=== PATIENT | male | born 1935 | race Caucasian/White ===

== ENCOUNTER 2016-10-31 16:13 | Emergency (ER) | payer MEDICARE, BC ==
[~2016-10-31] VITALS: Ht 188 cm; Wt 121.1 kg
[~2016-10-31 16:13] MED LIST: ACET-2161 PO; ACET650T59 PO; AMLO2.5T PO; ATOR80TA76 PO; BUME2TAB18 PO; CARV3.123 PO; CLIN300C86 PO; DOCU-175 PO; FAMO20TA8 PO; FEXO180T66 PO; GLIM1TAB2 PO; HYDR-4009 PO; HYDR28.472 TOP; IPRA3AMP AEROSOL; KETO5DRO70 OP; LISI-625 PO; MAG-37 PO; NITR0.4T39 SL; NYST15CR TOP; POLY17PO6 PO; POTA-81 PO; RIVA20TA PO; SERT25TA5 PO; SPIR25TA PO; TAMS0.4C20 PO
[2016-10-31 16:15] VITALS: Ht 188 cm; Wt 121.1 kg
--- NOTE | 2016-10-31 16:29 | ERPDOC ---
Departure Disposition Decision Date: Oct 31, 2016 Disposition Decision Time: 17:58 Disposition: 04 TO [facility] Impression Impression Impression: Primary Impression: Influenza-like illness Severity: Moderate Condition: Stable Seen By: Mid-level only Referrals: ARCHANA WOOD MD (Family) Patient Instructions: Influenza (ED) Problems/Meds/Labs Reviewed?: Yes Medications reviewed and manag: Yes Additional Instructions: CBC indicates a viral shift (consistent with influenza). Chest x-ray was normal. Patient's blood sugar is elevated most likely due to illness. Please adjust insulin accordingly. Keep well hydrated. Take Tamiflu 75mg, 1 tab twice daily for 5 days. Follow treatment plan. You may give already prescribed Tylenol or hydrocodone with acetaminophen as needed for pain. Follow up care ordered?: Yes Mental Status: Alert, Oriented Scripts Oseltamivir Phosphate (Tamiflu) 75 Mg Capsule 75 MG PO BID for 5 Days, #10 CAP Take one capsules, by mouth, two times a day. Prov: TRENTON STEVENS SALVAGE DETERMINER 10/31/16 HPI - Cough/URI General Chief Complaint: Cough,Fever,Flu,URI Stated Complaint: CONGESTION/SORE THROAT Time Seen by Provider: 16:28 Source: patient HPI - Cough/URI Initial Comments 81 YO M sent to ED from nursing for evaluation of cough, sore throat and sinus congestion for past 2 days. When I asked patient why he was sent to ED he says he has had a sore throat for 2 days. Says he is not coughing "that much" and described cough as non productive. Patient denies chills, SOA, CP, nausea/ vomiting or abdominal pain. MCC denied fever. Pain/Severity Scale: Now: 0/10 Associated Symptoms: cough, nasal congestion, nasal drainage, sore throat, DENIES: chest pain/soreness, dizziness, earache, facial pain, fever/chills, headache, lightheadedness, muscle aches, shortness of breath, sinus infection, wheezing Allergies: Coded Allergies: iodine (Verified Allergy, Severe, SWELLING, 10/31/16) PT. STATES, "AFTER MY LAST HEART CATH IN [place] I HAD SWELLING IN MY FACE". peanut (Verified Allergy, Severe, SHORTNESS OF BREATH, 10/31/16) Penicillins (Verified Allergy, Intermediate, SWOLLEN THROAT, 10/31/16) doxazosin (Verified Allergy, Unknown, SOB,CHEST PRESSURE, 10/31/16) metformin (Verified Allergy, Unknown, ELEVATED CREATININE, 10/31/16) pioglitazone (Verified Allergy, Unknown, FLUID RETENTION,CHF, 10/31/16) Past History Patient Surgical History Tonsillectomy cholecystectomy back surgery colonoscopy parathyroidectomy heart catheterization 2007, 2012, 09/08/15- [facility] CABG (2016 unknown date) TURP bilateral cataract surgery Past Medical History Metabolic: diabetes, hypercholesterolemia, hypertension, hypothyroidism, other ENMT: sleep apnea Cardiac: A-fib, CAD, CHF, angina Respiratory: asthma GI: GERD, crohn's Male: BPH, UTI, renal insufficiency Neurological: TIA, neuropathy Musculoskeletal: back pain, osteoarthritis Hematologic: anemia, blood transfusion Surgical History General: back, colonoscopy, gallbladder, tonsils Cardiac: cardiac bypass, cardiac cath Reproductive/: TURP, other (cysto) Family History Family PMH: FOUND: CAD, CHF, CVA, other Vaccines Hx Influenza Vaccination: Yes (MAY 2015) Hx Pneumococcal Vaccination: Yes (JUL 2015) Hx Tetanus Diptheria: No Hx Tetanus, Diptheria, Pertuss: No Social History Sexuality: female partner, other Review of Systems Constitutional Constitutional: DENIES: chills, dizziness, fever, weakness Eyes General: DENIES: erythema, exudate Lids/Accessories: DENIES: erythema, swelling ENMT Ears: DENIES: pain Hearing: hearing loss Sinuses: congestion, rhinorrhea Mouth/Throat: sore throat Cardiovascular Cardiac: DENIES: chest pain, murmur Rhythm/Rate: DENIES: palpitations Pulmonary Respiratory: cough, DENIES: dyspnea GI Upper Abdomen: DENIES: nausea, pain, vomiting Lower Abdomen: DENIES: blood in stool, diarrhea, pain General: DENIES: dysuria, pain Musculoskeletal General: DENIES: pain, tenderness Integumentary Skin: DENIES: color change, itching, rash Neurological General: DENIES: ataxia, change in strength, numbness, paralysis/paresis, weakness Psychiatric Psychiatric: DENIES: anxiety, depression, nervousness Physical Exam General General Nourishment: well nourished, well developed, adult, obese General Body Habitus: well groomed Vitals and Pain First Documented Vital Signs Date Time Temp Pulse Resp B/P Pulse Ox O2 Delivery O2 Flow Rate FiO2 10/31/16 16:15 98.1 62 18 149/65 93 Room Air Weight: Kilograms: Height (feet): 6 Height (inches): 2.00 Triage Pain Scale: Eyes (brief) Eyes Brief: found: EOMI, PERRL ENMT (brief) ENMT Brief: FOUND: TM clear, TM good light reflex, pharnyx erythema, NOT FOUND : nasal exudate, nasal swelling ENMT Pharynx: FOUND: posterior drainage, NOT FOUND: cobblestoning, displacement, edema, exudates, uvular deviation Neck (brief) Neck: FOUND: trachea midline, NOT FOUND: adenopathy, tenderness, thyromegaly Respiratory (brief) Respiratory: FOUND: clear all [place], equal bilaterally, symmetrical Cardiovascular (brief) Cardiac: FOUND: regular rate, regular rhythm Musculoskeletal (brief) Musculoskeletal Brief: NOT FOUND: deformity, loss of motion Integumentary (brief) Integumentary Brief: FOUND: dry, pink, warm Neurologic (brief) Neurological Brief: FOUND: CN w/o gross def to obs, motor-no gross deficits, sensory-no gross deficits Differential Diagnoses Differential Diagnoses Considering: Acute Bronchitis, Influenza, Pharyngitis, Pneumonia, Sinusitis, Strep, URI, Viral Syndrome Progress Results/Orders Orders Procedure Category Date Status Time Influenza A/B Screen LAB 10/31/16 Complete 16:36 Chest, Pa & Lateral RAD 10/31/16 Resulted 16:36 Strep A Antigen Screen LAB 10/31/16 Complete 16:36 Cbc W/Auto LAB 10/31/16 Complete Diff-Reflex Manual Cmp - Comprehensive LAB 10/31/16 Complete Metabolic Group A Strep Culture [facility] 10/31/16 In Process 17:18 Lab Results Laboratory Tests Test 10/31/16 17:01 10/31/16 17:09 Influenza Type A Antigen Negative Influenza Type B Antigen Negative Group A Streptococcus Screen Negative White Blood Count 4.8T/MM3 Red Blood Count 4.48M/MM3 Hemoglobin 13.1GM/DL Hematocrit 40.2% Mean Corpuscular Volume 89.7UM3 Mean Corpuscular Hemoglobin 29.2UUG Mean Corpuscular Hemoglobin Concent 32.6GM/DL RDW Standard Deviation 44.4FL Platelet Count 137T/MM3 Mean Platelet Volume 10.7UM3 Immature Granulocyte % (Auto) 0.6% Neutrophils (%) (Auto) 49.1% Lymphocytes (%) (Auto) 28.1% Monocytes (%) (Auto) 10.7% Eosinophils (%) (Auto) 10.7% Basophils (%) (Auto) 0.8% Absolute Immature Granulocyte (auto 0.03T/MM3 Absolute Neutrophils (auto) 2.3T/MM3 Absolute Lymphocytes (auto) 1.3T/MM3 Absolute Monocytes (auto) 0.5T/MM3 Absolute Eosinophils (auto) 0.5T/MM3 Absolute Basophils (auto) 0.0T/MM3 Turbidity < 20 Sodium Level 139MEQ/L Potassium Level 4.2MEQ/L Chloride Level 101MEQ/L Carbon Dioxide Level 28MEQ/L Anion Gap 10MEQ/L Blood Urea Nitrogen 22.0MG/DL Creatinine 1.1MG/DL Glomerular Filtration Rate Calc 64 BUN/Creatinine Ratio 20RATIO Glucose Level 307MG/DL Calculated Osmolality 283MOSM/KG Calcium Level 10.0MG/DL Total Bilirubin 0.50MG/DL Icterus Index < 2 Aspartate Amino Transf (AST/SGOT) 16U/L Alanine Aminotransferase (ALT/SGPT) 23U/L Alkaline Phosphatase 100U/L Total Protein 7.0G/DL Albumin 3.6G/DL Globulin 3.4G/DL Albumin/Globulin Ratio 1.1RATIO Chemistry Specimen Hemolysis < 15 Progress Progress CBC has viral shift CMP noncontributory (glucose most likely elevated due to illness) Influenza and rapid strep negative CXR did show any pneumonia or other acute findings. I discussed labs and CXR with patient and family, and answered questions. Patient and family verbalize understanding of treatment plan and follow up. Nurse called [facility] with report and they would like patient started on Tamiflu. Xray Xray : Xray: CXR PA/Lat (stable chest, no acute findings) Interpretation: Reviewed Written Report TRENTON STEVENS APRN Oct 31, 2016 16:28
[2016-10-31] MEDS ORDERED: MAGN400T6 PO (16:39)
[2016-10-31] MEDS ORDERED: LINA5TAB PO (16:39)
[2016-10-31] MEDS ORDERED: GLIM2TAB3 PO (16:39)
[2016-10-31] MEDS ORDERED: INSU100V8 SQ (16:51)
[2016-10-31] MEDS ORDERED: INSU100C14 SQ (16:51)
[2016-10-31] MEDS ORDERED: CLOT12CR TOP (16:51)
[2016-10-31] MEDS ORDERED: INSU100I14 SQ (16:51)
[2016-10-31] MEDS ORDERED: SODI14.1 TOP (16:51)
[2016-10-31] MEDS ORDERED: GUAI120015 PO (16:55)
[2016-10-31] MEDS ORDERED: BUDE0.5A6 AEROSOL (16:55)
[2016-10-31] MEDS ORDERED: LOPE2CAP PO (16:55)
--- NOTE | 2016-10-31 17:14 | DI ---
INDICATION: ITS.REASON: cough PROCEDURE: CHEST 2-VIEWS UPRIGHT (PA \T\ LAT) Encounter: Initial COMPARISON: January 30, 2016 FINDINGS: Lungs are stable in appearance with areas of linear scarring along the minor fissure. Mild hypoinflation. No consolidative pneumonia, gross pleural effusion or pneumothorax. Heart size and mediastinal contours are stable. Prior CABG. Pulmonary vascularity is unchanged. Impression: Stable appearance of the chest without acute pneumonia. .
[2016-10-31 17:28] LABS: INFLUENZA A AG SCREEN NEGATIVE (NEGATIVE); INFLUENZA B AG SCREEN NEGATIVE (NEGATIVE)
[2016-10-31 17:30] LABS: BASOPHILS % (AUTO) 0.8 % (0-2); EOSINOPHILS # (AUTO) 0.5 T/MM3 (0-0.5); EOSINOPHILS % (AUTO) 10.7 % (0-4); HCT - HEMATOCRIT 40.2 % (41-53); HGB - HEMOGLOBIN 13.1 GM/DL (13.5-17.5); IMMATURE GRANULOCYTE # (AUTO) 0.03 T/MM3 (0.00-0.03); IMMATURE GRANULOCYTE % (AUTO) 0.6 % (0.0-0.5); LYMPHOCYTES # (AUTO) 1.3 T/MM3 (1-4.8); LYMPHOCYTES % (AUTO) 28.1 % (23-45); MEAN CORPUSCULAR HGB 29.2 UUG (26-34); MEAN CORPUSCULAR HGB CONC(MCHC 32.6 GM/DL (31-37); MEAN CORPUSCULAR VOLUME 89.7 UM3 (80-100); MEAN PLATELET VOLUME 10.7 UM3 (9.4-12.4); MONOCYTES # (AUTO) 0.5 T/MM3 (0-0.8); MONOCYTES % (AUTO) 10.7 % (0-9.0); NEUTROPHILS #(AUTO)-ABSOLUTE 2.3 T/MM3 (1.8-7.7); NEUTROPHILS % (AUTO) 49.1 % (33-66); RED BLOOD COUNT 4.48 M/MM3 (4.50-5.90); WBC - WHITE BLOOD COUNT 4.8 T/MM3 (4.5-11.0)
[2016-10-31 17:35] LABS: ALBUMIN 3.6 G/DL (3.5-5.0); ALBUMIN/GLOBULIN RATIO 1.1 RATIO (1.1-2.2); ALKALINE PHOSPHATASE 100 U/L (38-126); ALT (SGPT) 23 U/L (21-72); ANION GAP 10 MEQ/L (5-15); AST (SGOT) 16 U/L (17-59); BUN/CREATININE RATIO 20 RATIO (6-26); CHLORIDE 101 MEQ/L (98-107); CO2 - CARBON DIOXIDE 28 MEQ/L (22-30); CREATININE 1.1 MG/DL (0.8-1.5); GLOMERULAR FILTRATION RATE 64; GLUCOSE 307 MG/DL (75-110); POTASSIUM 4.2 MEQ/L (3.6-5); SODIUM 139 MEQ/L (134-144)
--- NOTE | 2016-10-31 17:58 | NUR ---
REPORT REPORT TO TANIKA RUVALCABA
[2016-10-31] MEDS ORDERED: OSEL75CA PO (18:05)
[2016-10-31 18:14] VITALS: BP 138/62; PULSE 62; RESP 18; TEMP 98.1; O2SAT 93
--- NOTE | 2016-10-31 18:14 | NUR ---
DEPART DEPARTS VIA WHEELCHAIR. SCRIPT
== END 2016-10-31 18:14 | disposition home or self-care (01) ==
LOC: ED 16:13
DX: J11.1 Influenza due to unidentified influenza virus with other respiratory manifestations (principal)
CPT/HCPCS: 36415; 80053; 85025; 87081; 87400; 87430

== ENCOUNTER 2017-07-16 16:58 | Inpatient (IN) ==
[2017-07-16] MEDS ORDERED: ALBUTEROL/IPRATROPIUM 2.5mg-0.5mg/3ml NEB AEROSOL ONE ×2 (17:05→20:11)
--- NOTE | 2017-07-16 17:15 | Emergency Department Report ---
SOB HPI - General Chief Complaint: Shortness of Breath/Dyspnea Stated Complaint: soa Time Seen by Provider: 07/16/17 17:04 Source: patient Mode of arrival: ambulatory Limitations: other (respiratory failure) - History of Present Illness He is [place] in [place]. Today arrives per EMS with CPAP on and remains in respiratory distress. He has history of CHF and asthma. Was diagnosed with pneumonia 3 days ago and placed on Levaquin daily at 250mg. Today he became very SOA and EMS was called. Per nursing staff he has had some delirium and has not kept his O2 on at the [place]. He does wear CPAP at night. Did get an Albuterol treatment en route. Was evaluated by RN, HAND ENDBAND CUTTER, and RT on arrival to ER. Was switched from CPAP to BiPap. He is very anxious and is not answering questions. Once placed on Bipap he is able to relax after a few minutes and does nod his head yes when asked if he is feeling like he is breathing better. MD Complaint: shortness of breath Onset (ago): unknown Severity: moderate Consistency/Duration: constant Relieving factors: nothing Exacerbating factors: nothing Known history of: asthma, congestive heart failure Associated symptoms: fever (low grade temp) Treatment prior to arrival: oxygen, other (albuterol neb, CPAP) - Related Data Home Medications Medication Instructions Recorded Confirmed Tamsulosin HCl [Flomax] 0.4 mg PO HS #0 01/20/13 07/16/17 Docusate Sodium 200 mg PO DAILY #0 08/22/15 07/16/17 Acetaminophen [Acetaminophen Extra 1,000 mg PO BID #0 01/27/16 07/16/17 Strength] Amlodipine Besylate 2.5 mg PO HS #0 01/27/16 07/16/17 Atorvastatin Calcium 80 mg PO HS #0 01/27/16 07/16/17 Famotidine 20 mg PO BID #0 01/27/16 07/16/17 Ipratropium/Albuterol Sulfate 1 vial AEROSOL TID #0 01/27/16 07/16/17 [Iprat-Albut 0.5-3(2.5) mg/3 ml] Nitroglycerin 0.4 mg SL Q5MIN3 PRN #0 01/27/16 07/16/17 Sertraline HCl 25 mg PO DAILY #0 01/27/16 07/16/17 Bumetanide 2 mg PO DAILY #0 03/12/16 07/16/17 Spironolactone [Aldactone] 25 mg PO DAILY #0 03/12/16 07/16/17 Lisinopril 5 mg PO DAILY #0 03/15/16 07/16/17 Clotrimazole [Lotrimin AF] 1 applicatio TOP BID #0 10/31/16 07/16/17 Glimepiride 2 mg PO WB #0 tab 10/31/16 07/16/17 Insulin Glargine,Hum.rec.anlog 20 unit SQ HS #0 vial 10/31/16 07/16/17 [Lantus] LINAGLIPTIN 5mg [Tradjenta] 5 mg PO DAILY #0 10/31/16 07/16/17 Loperamide [Imodium] 1 mg PO Q6H PRN #0 cap 10/31/16 07/16/17 Magnesium Oxide 400 mg PO BID #0 10/31/16 07/16/17 Sodium Chloride Nasal Gel [[place] 1 applicatio EA NOSTRIL QID #0 10/31/16 07/16/17 Nasal Gel] Albuterol/Ipratropium [Duoneb] 3 ml AEROSOL Q2H PRN 07/16/17 07/16/17 Fexofenadine [Josefina] 180 mg PO DAILY 07/16/17 07/16/17 Fluticasone Nasal [place] [Flonase] 1 spray EA NOSTRIL BID 07/16/17 07/16/17 Fluticasone/Salmeterol 500/50 1 puff INH BID 07/16/17 07/16/17 [Advair 500-50Diskus] Guaifenesin/Dextromethorphan 10 ml PO Q4H PRN 07/16/17 07/16/17 [Robitussin Cough-Chest Dm Liq] Hydrocodone/APAP 5/325 [[place] 1 - 2 tab PO Q4H PRN 07/16/17 07/16/17 5/325] Hydrocortisone 1% Cream 1 applicatio TOP BID 07/16/17 07/16/17 [Cortizone-10 Cream] Insulin Aspart [NovoLOG] 5 unit SQ PRN PRN 07/16/17 07/16/17 Insulin Aspart [NovoLOG] 10 unit SQ TIDWM 07/16/17 07/16/17 Levofloxacin [Levaquin] 250 mg PO DAILY 07/16/17 07/16/17 Loperamide HCl [Imodium A-D] 2 mg PO HS 07/16/17 07/16/17 Nystatin 1 applicatio TP BID 07/16/17 07/16/17 Omeprazole Magnesium [Prilosec Otc] 20 mg PO BID 07/16/17 07/16/17 Rivaroxaban [Xarelto] 10 mg PO WS 07/16/17 07/16/17 Vitamins A and D [Vitamin A & D] 1 applicatio TP DAILY 07/16/17 07/16/17 Allergies Allergy/AdvReac Type Severity Reaction Status Date / Time iodine Allergy Severe SWELLING Verified 07/16/17 17:12 peanut Allergy Severe SHORTNESS Verified 07/16/17 17:12 OF BREATH Penicillins Allergy Intermediate SWOLLEN Verified 07/16/17 17:12 THROAT doxazosin Allergy Unknown SOB,CHEST Verified 07/16/17 17:12 PRESSURE metformin Allergy Unknown ELEVATED Verified 07/16/17 17:12 CREATININE pioglitazone Allergy Unknown FLUID Verified 07/16/17 17:12 RETENTION,CHF Review of Systems Limitations: ROS unobtainable due to patient's medical condition (at time of initial exam) Constitutional: Reports: fever Cardiovascular: Reports: chest pain Respiratory: Reports: dyspnea PFSH Patient Stated Medical History Congestive Heart Failure Yes Chronic Obstructive Pulmonary Yes Disease (COPD) Pneumonia Yes Diabetes Mellitus Type 1 Yes Clinic Medical History (Last Reviewed 07/13/17 @ 13:14 by JEFF Newman) Pneumonia (Acute Medical) Onychomycosis of multiple toenails with type 2 diabetes mellitus and peripheral neuropathy (Chronic Medical) Stage 3 chronic kidney disease (Chronic Medical) Dyspnea due to congestive heart failure (Acute Medical) Gout due to renal impairment, right wrist (Acute Medical) Lumbago (Chronic Medical) GERD without esophagitis (Chronic Medical) Chronic combined systolic and diastolic CHF (congestive heart failure) (Chronic Medical) Crohn's disease of colon (Chronic Medical) Thyroid disease (Chronic Medical) Morbid obesity (Chronic Medical) Hyperlipemia (Chronic Medical) Diabetic polyneuropathy (Chronic Medical) Diabetes (Chronic Medical) Coronary artery disease (Chronic Medical) Benign essential hypertension (Chronic Medical) Asthma (Chronic Medical) Adenoma (Chronic Medical) Cataract (Chronic Medical) First degree AV block (Chronic Medical) Hay fever (Chronic Medical) Hearing loss (Chronic Social Hx) History of BPH (Chronic Medical) Hyperparathyroidism (Chronic Medical) Left ventricular hypertrophy (Chronic Medical) Osteopenia (Chronic Medical) History of UTI (Inactive Medical) Ischemic colitis (Inactive Medical) Family History: Family History (Last Reviewed 07/13/17 @ 13:14 by Patricia Sosa ON LICENSE OF [facility]) Brother Bladder cancer Coronary artery disease Liver cancer Maternal Uncle Heart disease Son Melanoma - Social History Smoking status: Never smoker Substance use type: does not use Alcohol intake frequency: does not drink Physical Exam - Limitations Limitations: no limitations - General General appearance: alert, other (He is very anxious and is in respiratory distress, is not answering questions but will shake his head yes and no) - Normal Exams: Neck:: Full range of motion, without adenopathy, JVD, bruits or thyromegaly Cardiovascular:: Regular rate and rhythm, without murmur or gallop, Pulses 2+ all extremities, capillary refill, <2 seconds all extremities Abdomen:: Bowel sounds positive, soft, non-tender, non-distended, no hepatosplenomegaly, masses or bruits noted Lymphatic:: No lymphadenopathy, or lymphedema noted Musculoskeletal:: No tenderness, or deformity noted, good range of motion, all extremities Integumentary:: No rashes, hives, or bruising noted Neurological:: Patient is alert Psychiatric:: Patient exhibits, appropriate attention, emotion and affect - Respiratory Respiratory exam: Present: respiratory distress, crackles (course throughout all lobes) Course Vital Signs Temperature 100.3 F 07/16/17 17:00 Pulse Rate 91 07/16/17 17:00 Respiratory Rate 27 H 07/16/17 17:00 Blood Pressure 153/69 H 07/16/17 17:00 Pulse Oximetry 94 07/16/17 17:00 Temperature 97.1 F 07/16/17 20:20 Pulse Rate 86 07/16/17 20:20 Respiratory Rate 52 H 07/16/17 19:45 Blood Pressure 158/77 H 07/16/17 20:20 Pulse Oximetry 96 07/16/17 20:20 Shortness of Breath/Dyspnea - MDM Narrative Medical decision making narrative: Was able to wean off of the Bipap and was placed on 3L O2 per NC. He is able to speak in full sentences and is answering questions well. WBC is normal, lactate and procalcitonin is normal. B/P and pulse have been stable while in ER. Troponin is negative. Chest xray from 07/13/17 does show left lower lobe pneumonia and xray today does appear consistent with the pneumonia and some cardiac enlargement. BNP is 1010. Did discuss with Dr Swain. He will accept for admission at this time. - Differential Diagnosis Likely: acute exacerbation of chronic obstructive airways disease, congestive heart failure, community acquired pneumonia - Lab Data Attestation: I reviewed the patient's lab results. Result diagrams: 07/16/17 17:15 07/16/17 17:15 Lab Results 07/16/17 07/16/17 07/16/17 Range/Units 17:15 17:15 17:15 WBC 10.3 (4.5-11.0) T/MM3 RBC 4.39 L (4.50-5.90) M/MM3 Hgb 13.1 L (13.5-17.5) GM/DL Hct 41.3 (41-53) % MCV 94.1 (80-100) UM3 MCH 29.8 (26-34) UUG MCHC 31.7 (31-37) GM/DL RDW Std Deviation 47.8 (36.9-50.2) FL Plt Count 174 (130-400) T/MM3 MPV 10.5 (9.4-12.4) UM3 Immature Gran % (Auto) 0.4 (0.0-0.5) % Neut % (Auto) 84.5 H (33-66) % Lymph % (Auto) 6.9 L (23-45) % [place] % (Auto) 6.0 (0-9.0) % Eos % (Auto) 1.9 (0-4) % Baso % (Auto) 0.3 (0-2) % Neut # (Auto) 8.7 H (1.8-7.7) T/MM3 Lymph # (Auto) 0.7 L (1-4.8) T/MM3 [place] # (Auto) 0.6 (0-0.8) T/MM3 Eos # (Auto) 0.2 (0-0.5) T/MM3 Baso # (Auto) 0.0 (0-0.2) T/MM3 Abs Immat Gran (auto) 0.04 H (0.00-0.03) T/MM3 ABG pH (7.350-7.450) ABG pCO2 (34-45) MMHG ABG pO2 (80-100) MMHG ABG HCO3 (22-26) MEQ/L ABG Total CO2 (23-27) MEQ/L ABG O2 Saturation (95.0-98.0) % ABG Base Excess (-2.0-2.0) MMOL/L O2 Delivery Method FiO2 % Turbidity < 20 (0-20) Sodium 143 (134-144) MEQ/L Potassium 4.4 (3.6-5) MEQ/L Chloride 104 (98-107) MEQ/L Carbon Dioxide 26 (22-30) MEQ/L Anion Gap 13 (5-15) MEQ/L BUN 32.0 H (9-20) MG/DL Creatinine 1.5 (0.8-1.5) MG/DL GFR Calculation 45 BUN/Creatinine Ratio 21 (6-26) RATIO Glucose 197 H (75-110) MG/DL Calculated Osmolality 287 H (261-280) MOSM/KG Calcium 10.0 (8.4-10.2) MG/DL Total Bilirubin 0.50 (0.20-1.30) MG/DL Icterus Index < 2 (0-7) AST 20 (17-59) U/L ALT 26 (21-72) U/L Alkaline Phosphatase 92 (38-126) U/L Troponin I 0.062 (0-0.12) ng/ml B-Natriuretic Peptide 1010 H (0-175) pg/mL Total Protein 7.5 (6.3-8.2) G/DL Albumin 3.8 (3.5-5.0) G/DL Globulin 3.7 H (2.4-3.6) G/DL Albumin/Globulin Ratio 1.0 L (1.1-2.2) RATIO Plasma Lactate 1.2 (0.6-2.2) MMOL/L Procalcitonin 0.09 NG/ML Specimen Hemolysis < 15 (0-25) Ur Collection Type Urine Color (YELLOW) Urine Clarity Urine pH (5.0-8.0) Ur Specific [place] (1.015-1.025) Urine Protein (NEGATIVE) Urine Glucose (UA) (NEGATIVE) Urine Ketones (NEGATIVE) Urine Occult Blood (NEGATIVE) Urine Nitrate (NEGATIVE) Urine Bilirubin (NEGATIVE) Urine Urobilinogen (NORMAL) EU/DL Ur Leukocyte Esterase (NEGATIVE) Urine RBC (0-3) /HPF Urine WBC (0-5) /HPF Urine Bacteria (NEGATIVE) Ur Culture Indicated? 07/16/17 07/16/17 Range/Units 17:20 18:18 WBC (4.5-11.0) T/MM3 RBC (4.50-5.90) M/MM3 Hgb (13.5-17.5) GM/DL Hct (41-53) % MCV (80-100) UM3 MCH (26-34) UUG MCHC (31-37) GM/DL RDW Std Deviation (36.9-50.2) [place] Plt Count (130-400) T/MM3 MPV (9.4-12.4) UM3 Immature Gran % (Auto) (0.0-0.5) % Neut % (Auto) (33-66) % Lymph % (Auto) (23-45) % [place] % (Auto) (0-9.0) % Eos % (Auto) (0-4) % Baso % (Auto) (0-2) % Neut # (Auto) (1.8-7.7) T/MM3 Lymph # (Auto) (1-4.8) T/MM3 [place] # (Auto) (0-0.8) T/MM3 Eos # (Auto) (0-0.5) T/MM3 Baso # (Auto) (0-0.2) T/MM3 Abs Immat Gran (auto) (0.00-0.03) T/MM3 ABG pH 7.370 (7.350-7.450) ABG pCO2 49 H (34-45) MMHG ABG pO2 159 H (80-100) MMHG ABG HCO3 28 H (22-26) MEQ/L ABG Total CO2 29.8 H (23-27) MEQ/L ABG O2 Saturation 99.0 H (95.0-98.0) % ABG Base Excess 2.3 H (-2.0-2.0) MMOL/L O2 Delivery Method Bpap, % FiO2 % 50 Turbidity (0-20) Sodium (134-144) MEQ/L Potassium (3.6-5) MEQ/L Chloride (98-107) MEQ/L Carbon Dioxide (22-30) MEQ/L Anion Gap (5-15) MEQ/L BUN (9-20) MG/DL Creatinine (0.8-1.5) MG/DL GFR Calculation BUN/Creatinine Ratio (6-26) RATIO Glucose (75-110) MG/DL Calculated Osmolality (261-280) MOSM/KG Calcium (8.4-10.2) MG/DL Total Bilirubin (0.20-1.30) MG/DL Icterus Index (0-7) AST (17-59) U/L ALT (21-72) U/L Alkaline Phosphatase (38-126) U/L Troponin I (0-0.12) ng/ml B-Natriuretic Peptide (0-175) pg/mL Total Protein (6.3-8.2) G/DL Albumin (3.5-5.0) G/DL Globulin (2.4-3.6) G/DL Albumin/Globulin Ratio (1.1-2.2) RATIO Plasma Lactate (0.6-2.2) MMOL/L Procalcitonin NG/ML Specimen Hemolysis (0-25) Ur Collection Type Urine, clean catch Urine Color Yellow (YELLOW) Urine Clarity Clear Urine pH 5.0 (5.0-8.0) Ur Specific [place] 1.020 (1.015-1.025) Urine Protein 1+ A (NEGATIVE) Urine Glucose (UA) Negative (NEGATIVE) Urine Ketones Negative (NEGATIVE) Urine Occult Blood Trace-intact (NEGATIVE) Urine Nitrate Negative (NEGATIVE) Urine Bilirubin Negative (NEGATIVE) Urine Urobilinogen 0.2 (NORMAL) EU/DL Ur Leukocyte Esterase Negative (NEGATIVE) Urine RBC 1-3 (0-3) /HPF Urine WBC None seen (0-5) /HPF Urine Bacteria Trace H (NEGATIVE) Ur Culture Indicated? Cult not indicated - Radiology Data Attestation: I reviewed the patient's radiology results. Chest xray: Disposition Clinical Impression: Pneumonia Qualifiers: Pneumonia type: due to other aerobic Gram-negative bacteria Laterality: left Lung location: lower lobe of lung Qualified Code(s): J15.6 - Pneumonia due to other Gram-negative bacteria Disposition: 02 To [facility] [place] Acute Care Condition: Improved Time of Disposition: 19:26 - Seen By: midlevel
[2017-07-16] MEDS ORDERED: LEVOFLOXACIN PB 750 MG/150 ML BAG IV SCH (19:30)
[2017-07-16] MEDS: SALINE FLUSH 10ml SYRINGE IVF PRN (19:30)
[2017-07-16] MEDS ORDERED: Bisacodyl EC TAB 5 MG TABLET PO PRN (20:11)
[2017-07-16] MEDS ORDERED: ONDANSETRON 4 MG/2 ML INJECTION IVP PRN (20:11)
[2017-07-16 20:31] VITALS: BMI 35.9
[2017-07-16] MEDS ORDERED: Oxycodone/Acetaminophen 5/325 1 TAB PO PRN (21:25)
[2017-07-16] MEDS ORDERED: LORazepam 1 MG TABLET PO PRN (21:25)
[2017-07-16] MEDS ORDERED: FUROSEMIDE 40 MG/4 ML INJECTION IVP SCH (21:30)
--- NOTE | 2017-07-16 21:30 | History & Physical Report ---
History of Present Illness Date: 07/17/17 Chief complaint: short of breath and weak HPI: Please note that the patient was seen via telemedicine with nursing assistance on 07/16/2017, Mr. York is an 82yo man with h/o COPD/asthma, DM2 on insulin, HTN, afib likely permanent, but no cad or CVAs. He has had CHF and is on chronic diuretics. He noted feeling weaker with minimally productive cough the last 3 days started on just 250mg PO levaquin by CT doc. No syncope but so weak has fallen. No chest pain. Has had nausea and anorexia, but no diarrhea. He is a fair historian at best with daughter now gone. Review of Systems All systems PM: 10-point ROS was reviewed, no additional remarkable complaints except PFSH Patient Stated Medical History Congestive Heart Failure Yes Chronic Obstructive Pulmonary Yes Disease (COPD) Pneumonia Yes Diabetes Mellitus Type 1 Yes Clinic Medical History (Last Reviewed 07/13/17 @ 13:14 by JEFF Newman) Pneumonia (Acute Medical) Onychomycosis of multiple toenails with type 2 diabetes mellitus and peripheral neuropathy (Chronic Medical) Stage 3 chronic kidney disease (Chronic Medical) Dyspnea due to congestive heart failure (Acute Medical) Gout due to renal impairment, right wrist (Acute Medical) Lumbago (Chronic Medical) GERD without esophagitis (Chronic Medical) Chronic combined systolic and diastolic CHF (congestive heart failure) (Chronic Medical) Crohn's disease of colon (Chronic Medical) Thyroid disease (Chronic Medical) Morbid obesity (Chronic Medical) Hyperlipemia (Chronic Medical) Diabetic polyneuropathy (Chronic Medical) Diabetes (Chronic Medical) Coronary artery disease (Chronic Medical) Benign essential hypertension (Chronic Medical) Asthma (Chronic Medical) Adenoma (Chronic Medical) Cataract (Chronic Medical) First degree AV block (Chronic Medical) Hay fever (Chronic Medical) Hearing loss (Chronic Social Hx) History of BPH (Chronic Medical) Hyperparathyroidism (Chronic Medical) Left ventricular hypertrophy (Chronic Medical) Osteopenia (Chronic Medical) History of UTI (Inactive Medical) Ischemic colitis (Inactive Medical) Family History: Family History (Last Reviewed 07/13/17 @ 13:14 by JEFF Newman) Brother Bladder cancer Coronary artery disease Liver cancer Maternal Uncle Heart disease Son Melanoma - Social History Smoking status: Never smoker Medications Home Medications Medication Instructions Recorded Confirmed Type Tamsulosin HCl [Flomax] 0.4 mg PO HS #0 01/20/13 07/16/17 History Docusate Sodium 200 mg PO DAILY #0 08/22/15 07/16/17 History Acetaminophen [Acetaminophen Extra 1,000 mg PO BID #0 01/27/16 07/16/17 History Strength] Amlodipine Besylate 2.5 mg PO HS #0 01/27/16 07/16/17 History Atorvastatin Calcium 80 mg PO HS #0 01/27/16 07/16/17 History Famotidine 20 mg PO BID #0 01/27/16 07/16/17 History Ipratropium/Albuterol Sulfate 1 vial AEROSOL TID #0 01/27/16 07/16/17 History [Iprat-Albut 0.5-3(2.5) mg/3 ml] Nitroglycerin 0.4 mg SL Q5MIN3 PRN #0 01/27/16 07/16/17 History Sertraline HCl 25 mg PO DAILY #0 01/27/16 07/16/17 History Bumetanide 2 mg PO DAILY #0 03/12/16 07/16/17 History Spironolactone [Aldactone] 25 mg PO DAILY #0 03/12/16 07/16/17 History Lisinopril 5 mg PO DAILY #0 03/15/16 07/16/17 History Clotrimazole [Lotrimin AF] 1 applicatio TOP BID #0 10/31/16 07/16/17 History Glimepiride 2 mg PO WB #0 tab 10/31/16 07/16/17 History Insulin Glargine,Hum.rec.anlog 20 unit SQ HS #0 vial 10/31/16 07/16/17 History [Lantus] LINAGLIPTIN 5mg [Tradjenta] 5 mg PO DAILY #0 10/31/16 07/16/17 History Loperamide [Imodium] 1 mg PO Q6H PRN #0 cap 10/31/16 07/16/17 History Magnesium Oxide 400 mg PO BID #0 10/31/16 07/16/17 History Sodium Chloride Nasal Gel [[place] 1 applicatio EA NOSTRIL QID #0 10/31/16 07/16/17 History Nasal Gel] Albuterol/Ipratropium [Duoneb] 3 ml AEROSOL Q2H PRN 07/16/17 07/16/17 History Fexofenadine [Josefina] 180 mg PO DAILY 07/16/17 07/16/17 History Fluticasone Nasal [place] [Flonase] 1 spray EA NOSTRIL BID 07/16/17 07/16/17 History Fluticasone/Salmeterol 500/50 1 puff INH BID 07/16/17 07/16/17 History [Advair 500-50Diskus] Guaifenesin/Dextromethorphan 10 ml PO Q4H PRN 07/16/17 07/16/17 History [Robitussin Cough-Chest Dm Liq] Hydrocodone/APAP 5/325 [[place] 1 - 2 tab PO Q4H PRN 07/16/17 07/16/17 History 5/325] Hydrocortisone 1% Cream 1 applicatio TOP BID 07/16/17 07/16/17 History [Cortizone-10 Cream] Insulin Aspart [NovoLOG] 5 unit SQ PRN PRN 07/16/17 07/16/17 History Insulin Aspart [NovoLOG] 10 unit SQ TIDWM 07/16/17 07/16/17 History Levofloxacin [Levaquin] 250 mg PO DAILY 07/16/17 07/16/17 History Loperamide HCl [Imodium A-D] 2 mg PO HS 07/16/17 07/16/17 History Nystatin 1 applicatio TP BID 07/16/17 07/16/17 History Omeprazole Magnesium [Prilosec Otc] 20 mg PO BID 07/16/17 07/16/17 History Rivaroxaban [Xarelto] 10 mg PO WS 07/16/17 07/16/17 History Vitamins A and D [Vitamin A & D] 1 applicatio TP DAILY 07/16/17 07/16/17 History Allergies Allergy/AdvReac Type Severity Reaction Status Date / Time iodine Allergy Severe SWELLING Verified 07/16/17 17:12 peanut Allergy Severe SHORTNESS Verified 07/16/17 17:12 OF BREATH Penicillins Allergy Intermediate SWOLLEN Verified 07/16/17 17:12 THROAT doxazosin Allergy Unknown SOB,CHEST Verified 07/16/17 17:12 PRESSURE metformin Allergy Unknown ELEVATED Verified 07/16/17 17:12 CREATININE pioglitazone Allergy Unknown FLUID Verified 07/16/17 17:12 RETENTION,CHF Exam Vital Signs: Temperature 97.1 F 07/16/17 20:20 Pulse Rate 86 07/16/17 20:20 Respiratory Rate 52 H 07/16/17 19:45 Blood Pressure 158/77 H 07/16/17 20:20 Pulse Oximetry 96 07/16/17 20:20 Telemetry Rhythm: A-fib Height/Weight/BMI: Height 1.88 m Weight 126.8 kg Body Mass Index 35.9 - Constitutional Present: mild distress - Routine HEENT Exam Eye: Present: EOMI - Routine Respiratory Exam Comments: no isidro wheezing, but definite bilateral rales, tachypnic - Routine Cardiovascular Exam Comments: irr irr rhythm with normal rate, 1+ LE edema - Routine Abdominal Exam Present: soft, normoactive bowel sounds - Routine Extremities Exam Absent: clubbing - Routine Skin Exam Present: intact - Routine Neurological Exam alert and oriented, but slow to answer some questions. no lateraliziang signs Results - Labs CBC & Chem 7: 07/17/17 04:34 07/17/17 04:34 Assessment and Plan (1) HCAP (healthcare-associated pneumonia) Current visit: Yes Status: Acute (2) Debility Current visit: Yes Status: Acute (3) Diabetes Current visit: No Status: Chronic (4) Benign essential hypertension Current visit: No Status: Chronic (5) Asthma Current visit: No Status: Chronic Assessment and Plan: 1. HCAP--full inpatient admit with O2 to keep sat over 90% (briefly on BIPAP in ED). No sepsis. Vanco, levaquin, aztreonam based on allergies. Nebs. 2. CHF chronic with HTN and afib likley diastolic. Dose lasix now and resume prior meds except diuretic may need to continue IV 3. Essential HTN 4. Permanent afib on DOAC 5. Class 2 obesity BMi 35.9 6. Dyslipidemia on statin. Uncertain about CAD Confirmed wants full code. See updated notes dated 07/17. Caleb Wang 07/17/17 1154 DVT Prophylaxis: SCD's Resuscitation Status: Full Code Hospital Course Summary Disclaimer: The visit summary below is not to be considered part of the above Progress Note.
[2017-07-16] MEDS ORDERED: FALL RISK - PHARMACY CONSULT XX ONE (21:41)
[2017-07-16] MEDS: NS FLUSH BAG 500ml IV PRN (23:02)
[2017-07-16] MEDS: AZTREONAM 1 G in NS 100 ML IV SCH (23:02)
[2017-07-17] MEDS: ACETAMINOPHEN 325 MG TABLET PO PRN ×2 (00:37→18:36)
[2017-07-17] MEDS: ALBUTEROL/IPRATROPIUM 2.5mg-0.5mg/3ml NEB AEROSOL SCH ×4 (06:18→23:07)
--- NOTE | 2017-07-17 08:22 | XRay Report ---
Indication: dyspnea PROCEDURE: XR chest 1V: Encounter: Initial Comparison: July 13, 2017 Findings: Continued evidence of airspace opacity in the left lower lobe which is somewhat poorly evaluated due to portable technique and patient body habitus. No obvious change from the comparison however. No pneumothorax or obvious pleural effusion. Mediastinal contours and pulmonary vascularity are stable. Prior sternotomy. Impression: Stable chest with possible left lower lobe infiltrate. .
[2017-07-17] MEDS: AZTREONAM 1 G in NS 100 ML IV SCH ×2 (09:14→22:44)
[2017-07-17] MEDS: SALINE FLUSH 10ml SYRINGE IVF PRN ×2 (09:14→22:38)
[2017-07-17] MEDS: ALBUTEROL/IPRATROPIUM 2.5mg-0.5mg/3ml NEB AEROSOL PRN (10:08)
[2017-07-17] MEDS: SODIUM CL 3% INHAL.SOLN 15ml NEB AEROSOL SCH ×2 (10:09→23:14)
[2017-07-17] MEDS: LISINOPRIL 5 MG TABLET PO SCH (11:06)
[2017-07-17] MEDS: ACETAMINOPHEN 500 MG TABLET PO SCH ×2 (11:06→22:37)
[2017-07-17] MEDS: FEXOFENADINE 180 MG TABLET PO SCH (11:06)
[2017-07-17] MEDS: FAMOTIDINE 20 MG TABLET PO SCH ×2 (11:06→22:37)
[2017-07-17] MEDS: INSULIN ASPART 100unit/ml INJECTION SQ SCH ×3 (11:15→17:34)
--- NOTE | 2017-07-17 12:08 | History & Physical Report ---
History of Present Illness Date: 07/17/17 Chief complaint: fever, dyspnea, delirium HPI: Mr. York is an 82yo man who was evaluated by Damaris Redd APRN on 07/13 for evaluation of his lungs at which time chest x-ray demonstrated left retrocardiac infiltrate and he was started on just 250mg PO levaquin/day. Minimally productive cough was reported at that time. Subsequently the patient has been weak and fallen without syncope. He was transferred to the emergency room today with reports of increasing dyspnea, delirium, and fever from the [facility]. Temperature on arrival in the ER was 100.3 and the patient was to And low-grade tachycardia. He was in respiratory distress on arrival on the emergency room despite transfer on CPAP. The emergency room received history that they've been unable to keep supplemental oxygen on the patient. little history could be obtained directly from the patient in the emergency room or the time of my assessment. He denied cough, sputum, chest pain, fever, or chills. Has had nausea and anorexia, but no diarrhea. Chest x-ray again demonstrated left lower lobe infiltrate with compensated hypercarbia on blood gas. Patient was hospitalized for further management having failed outpatient therapy. Review of Systems ROS unobtainable: due to mental status PFSH Past medical history Pneumonia (Acute Medical) Onychomycosis of multiple toenails with type 2 diabetes mellitus and peripheral neuropathy (Chronic Medical) Stage 3 chronic kidney disease (Chronic Medical) Gout, right wrist (Acute Medical) Lumbago (Chronic Medical) GERD without esophagitis (Chronic Medical) Chronic diastolic CHF (congestive heart failure) (Chronic Medical) Crohn's disease of colon (Chronic Medical) Thyroid disease (Chronic Medical) Morbid obesity (Chronic Medical) Hyperlipemia (Chronic Medical) Diabetic polyneuropathy (Chronic Medical) Diabetes mellitus (Chronic Medical) Coronary artery disease (Chronic Medical) Benign essential hypertension (Chronic Medical) Asthma (Chronic Medical) Adenoma (Chronic Medical) Cataract (Chronic Medical) First degree AV block (Chronic Medical) Hay fever (Chronic Medical) Hearing loss (Chronic Social Hx) History of BPH (Chronic Medical) Hyperparathyroidism (Chronic Medical) Left ventricular hypertrophy (Chronic Medical) Osteopenia (Chronic Medical) History of UTI (Inactive Medical) Ischemic colitis (Inactive Medical) Surgical History: Tonsillectomy, cholecystectomy, back surgery, parathyroidectomy, CABG-2016, TURP, bilateral cataract surgery Family History: Family History (Last Reviewed 07/13/17 @ 13:14 by Patricia Sosa Christiano) Brother Bladder cancer Coronary artery disease Liver cancer Maternal Uncle Heart disease Son Melanoma - Social History Smoking status: Never smoker Substance use type: does not use Alcohol intake frequency: does not drink Current residence: [place] ([facility]) Social history: PCP-Dr. Leigh/Damaris Redd APRN Alternate decision maker-patient told me he wishes his daughter to make decisions if he is unable to, I could not find DPOA paperwork in records from [facility] CODE STATUS-full Medications Home Medications Medication Instructions Recorded Confirmed Type Tamsulosin HCl [Flomax] 0.4 mg PO HS #0 01/20/13 07/16/17 History Docusate Sodium 200 mg PO DAILY #0 08/22/15 07/16/17 History Acetaminophen [Acetaminophen Extra 1,000 mg PO BID #0 01/27/16 07/16/17 History Strength] Amlodipine Besylate 2.5 mg PO HS #0 01/27/16 07/16/17 History Atorvastatin Calcium 80 mg PO HS #0 01/27/16 07/16/17 History Famotidine 20 mg PO BID #0 01/27/16 07/16/17 History Ipratropium/Albuterol Sulfate 1 vial AEROSOL TID #0 01/27/16 07/16/17 History [Iprat-Albut 0.5-3(2.5) mg/3 ml] Nitroglycerin 0.4 mg SL Q5MIN3 PRN #0 01/27/16 07/16/17 History Sertraline HCl 25 mg PO DAILY #0 01/27/16 07/16/17 History Bumetanide 2 mg PO DAILY #0 03/12/16 07/16/17 History Spironolactone [Aldactone] 25 mg PO DAILY #0 03/12/16 07/16/17 History Lisinopril 5 mg PO DAILY #0 03/15/16 07/16/17 History Clotrimazole [Lotrimin AF] 1 applicatio TOP BID #0 10/31/16 07/16/17 History Glimepiride 2 mg PO WB #0 tab 10/31/16 07/16/17 History Insulin Glargine,Hum.rec.anlog 20 unit SQ HS #0 vial 10/31/16 07/16/17 History [Lantus] LINAGLIPTIN 5mg [Tradjenta] 5 mg PO DAILY #0 10/31/16 07/16/17 History Loperamide [Imodium] 1 mg PO Q6H PRN #0 cap 10/31/16 07/16/17 History Magnesium Oxide 400 mg PO BID #0 10/31/16 07/16/17 History Sodium Chloride Nasal Gel [[place] 1 applicatio EA NOSTRIL QID #0 10/31/16 07/16/17 History Nasal Gel] Albuterol/Ipratropium [Duoneb] 3 ml AEROSOL Q2H PRN 07/16/17 07/16/17 History Fexofenadine [Josefina] 180 mg PO DAILY 07/16/17 07/16/17 History Fluticasone Nasal [place] [Flonase] 1 spray EA NOSTRIL BID 07/16/17 07/16/17 History Fluticasone/Salmeterol 500/50 1 puff INH BID 07/16/17 07/16/17 History [Advair 500-50Diskus] Guaifenesin/Dextromethorphan 10 ml PO Q4H PRN 07/16/17 07/16/17 History [Robitussin Cough-Chest Dm Liq] Hydrocodone/APAP 5/325 [[place] 1 - 2 tab PO Q4H PRN 07/16/17 07/16/17 History 5/325] Hydrocortisone 1% Cream 1 applicatio TOP BID 07/16/17 07/16/17 History [Cortizone-10 Cream] Insulin Aspart [NovoLOG] 5 unit SQ PRN PRN 07/16/17 07/16/17 History Insulin Aspart [NovoLOG] 10 unit SQ TIDWM 07/16/17 07/16/17 History Levofloxacin [Levaquin] 250 mg PO DAILY 07/16/17 07/16/17 History Loperamide HCl [Imodium A-D] 2 mg PO HS 07/16/17 07/16/17 History Nystatin 1 applicatio TP BID 07/16/17 07/16/17 History Omeprazole Magnesium [Prilosec Otc] 20 mg PO BID 07/16/17 07/16/17 History Rivaroxaban [Xarelto] 10 mg PO WS 07/16/17 07/16/17 History Vitamins A and D [Vitamin A & D] 1 applicatio TP DAILY 07/16/17 07/16/17 History Allergies Allergy/AdvReac Type Severity Reaction Status Date / Time iodine Allergy Severe SWELLING Verified 07/16/17 17:12 peanut Allergy Severe SHORTNESS Verified 07/16/17 17:12 OF BREATH Penicillins Allergy Intermediate SWOLLEN Verified 07/16/17 17:12 THROAT doxazosin Allergy Unknown SOB,CHEST Verified 07/16/17 17:12 PRESSURE metformin Allergy Unknown ELEVATED Verified 07/16/17 17:12 CREATININE pioglitazone Allergy Unknown FLUID Verified 07/16/17 17:12 RETENTION,CHF Exam Vital Signs: Temperature 98.5 F 07/17/17 08:00 Pulse Rate 93 07/17/17 08:00 Respiratory Rate 22 07/17/17 10:09 Blood Pressure 160/85 H 07/17/17 08:00 Pulse Oximetry 98 07/17/17 10:09 EXAM General-on BiPAP-voice muffled, seems somewhat confused-cannot tell me where he is. NAD at present, nods/mumbles responses to questions. 98.5, 22, 98% on BiPAP HEENT-conjunctiva clear, sclera anicteric, PERRL, facial structures grossly symmetric, cannot fully assess oropharynx due to BiPAP mask but anterior oropharynx clear, neck supple, no adenopathy appreciated Lungs-respirations nonlabored at time of exam, good airflow, decreased breath sounds throughout, no wheezing or rhonchi appreciated currently Cardiac-decreased/distant heart tones, regular by pulse Abd-obese, soft, nontender, diminished bowel sounds Ext-+1 edema, no clubbing Skin-hemorrhagic change just proximal to left fourth digit, right fourth toenail absent; no ulcerations or generalized rash present Neuro-CN 3-12 grossly intact, motor tone normal, MAEW, no tremor, follow simple commands, sensation grossly intact to tickle/pinch 4 extremities Psych-dull, cooperative - Height/Weight/BMI: Height 1.88 m Weight 125.6 kg Body Mass Index 35.9 Results - Labs CBC & Chem 7: 07/17/17 04:34 07/17/17 04:34 Labs: Differential unremarkable Lactic acid 1.2-1.1; procalcitonin 0.09 Liver enzymes unremarkable ProBNP 1010 UA positive +1 protein, no WBCs - ABG Interpretation Attestation: I reviewed and interpreted this ABG. ABG results: 07/17/17 11:19 ABG pH 7.360 ABG pCO2 54 H ABG pO2 72 L ABG HCO3 31 H ABG Total CO2 32.2 H ABG O2 Saturation 94.0 L ABG Base Excess 3.9 H Interpretation: respiratory acidosis (minor respiratory acidosis, largely compensated; hypoxia) - Imaging and Cardiology Chest x-ray Status: image reviewed by me (current chest x-ray and x-ray from 07/13 reviewed by myself-left lower lobe infiltrate) Assessment and Plan (1) HCAP (healthcare-associated pneumonia) Current visit: Yes Status: Acute (2) Debility Current visit: Yes Status: Acute (3) Diabetes Problem details: Type II; A1c 7.0-04/10/17; chronic insulin therapy, with nephropathy/neuropathy Current visit: No Status: Chronic Assessment and Plan: Impression: Healthcare associated pneumonia Acute respiratory failure-hypoxic/hypercarbic Chronic diastolic heart failure-ejection fraction 80% echo 04/28 CKD, stage III Atrial fibrillation, chronic Hypertension Diabetes mellitus type 2, insulin dependent, with nephropathy/neuropathy Obesity-BMI 35.6 on admission Plan: Antibiotics empirically expanded on presentation to health care coverage with vancomycin, aztreonam, and continuation of Levaquin with doses adjusted for renal failure. Sputum to be induced by respiratory and respiratory viral panel to be obtained in light of low procalcitonin. I am concerned that Levaquin may be contributing to delirium patient has developed prior to hospitalization although respiratory failure may equally explain altered mental status. Continue Levaquin at present. Continue BiPAP for ventilatory assistance as needed and at night. Hypertonic saline added to breathing treatments to help mobilize secretions after discussion with RT. Diuresis initiated overnight, monitor fluid balance cautiously. Resume home dose Bumex. Xarelto continued for atrial fibrillation. Monitor blood sugars/corrective scale insulin. Confirmed full CODE STATUS-this corresponds to [facility] paperwork. half-way records reviewed, past medical records reviewed, x-rays reviewed by myself. Hospital Course Summary Disclaimer: The visit summary below is not to be considered part of the above Progress Note. Hospital Course: 07/16/17-07/17/17 Admitted overnight with left lower lobe pneumonia after failing outpatient therapy. Presented with increasing dyspnea and delirium. Antibiotics empirically expanded on presentation to health care coverage with vancomycin, aztreonam, and continuation of Levaquin with doses adjusted for renal failure. Sputum to be induced by respiratory and respiratory viral panel to be obtained in light of low procalcitonin. I am concerned that Levaquin may be contributing to delirium patient has developed prior to hospitalization although respiratory failure may equally explain altered mental status. Continue Levaquin at present. Continue BiPAP for ventilatory assistance as needed and at night. Hypertonic saline added to breathing treatments to help mobilize secretions after discussion with RT. Diuresis initiated overnight, monitor fluid balance cautiously. Resume home dose Bumex. Xarelto continued for atrial fibrillation.
--- NOTE | 2017-07-17 13:18 | Pharmacy Consult-Antibiotics ---
Pharmacy Consult-Vancomycin - Laboratory Information WBC 8.9 T/MM3 (4.5-11.0) 07/17/17 04:34 BUN 31.0 MG/DL (9-20) H 07/17/17 04:34 Creatinine 1.3 MG/DL (0.8-1.5) D 07/17/17 04:34 Procalcitonin 0.09 NG/ML 07/16/17 17:15 - Consult Information VANCOMYCIN CONSULT: Diagnosis: Health Care Associated Pneumonia AH is an 82 year old male who was started on Levofloxacin 25o mg po daily for left retrocardiac infiltrate. The course of therapy failed because of increased dyspnea, delirium, and fever. His was admitted through the ED with the following impressions: Health care associated pneumonia, Acute respiratory failure-hypoxic/hypercarbic, Chronic diastolic heart failure-ejection fraction 80% echo 04/28, CKD, stage III, Chronic Atrial fibrillation, chronic Hypertension , Diabetes mellitus type 2, insulin dependent, with nephropathy/neuropathy. Current Renal Function: S Cr = 1.3 mg/dl. Estimated Cr Cl ~ 62 mL/min The Patient was given Vancomycin 2000 mg iv @ 0030 on 07/17. I changed the Vancomycin to 1,000 mg IV q12hrs @ 1200/0001. The pharmacy will continue to monitor and adjust regimen to maintain therapeutic levels. Thank you for the Vancomycin Consult, Michelet John, Pharmacist.
[2017-07-17] MEDS: BUMETANIDE 1 MG TABLET PO SCH (14:05)
[2017-07-17] MEDS: RIVAROXABAN 10 MG TABLET PO SCH (17:35)
[2017-07-17] MEDS ORDERED: LEVOFLOXACIN PB 750 MG/150 ML BAG IV SCH (19:30)
[2017-07-17] MEDS: AMLODIPINE 2.5 MG TABLET PO SCH (22:36)
[2017-07-17] MEDS: INSULIN GLARGINE 100unit/ml INJECTION SQ SCH (22:36)
[2017-07-18] MEDS: ALBUTEROL/IPRATROPIUM 2.5mg-0.5mg/3ml NEB AEROSOL SCH ×5 (04:46→21:29)
[2017-07-18] MEDS: ALBUTEROL/IPRATROPIUM 2.5mg-0.5mg/3ml NEB AEROSOL PRN (07:45)
[2017-07-18] MEDS: SODIUM CL 3% INHAL.SOLN 15ml NEB AEROSOL SCH ×2 (07:51→16:18)
[2017-07-18] MEDS: FEXOFENADINE 180 MG TABLET PO SCH (08:19)
[2017-07-18] MEDS: BUMETANIDE 1 MG TABLET PO SCH (08:20)
[2017-07-18] MEDS: LISINOPRIL 5 MG TABLET PO SCH (08:20)
[2017-07-18] MEDS: FAMOTIDINE 20 MG TABLET PO SCH ×2 (08:20→20:52)
[2017-07-18] MEDS: SALINE FLUSH 10ml SYRINGE IVF PRN (08:30)
[2017-07-18] MEDS: AZTREONAM 1 G in NS 100 ML IV SCH ×2 (08:30→20:44)
[2017-07-18] MEDS: NS FLUSH BAG 500ml IV PRN (08:37)
[2017-07-18] MEDS ORDERED: BUMETANIDE 2 MG PO SCH (09:00)
[2017-07-18] MEDS ORDERED: BUMETANIDE 1 MG TABLET PO SCH (09:00)
[2017-07-18] MEDS: INSULIN ASPART 100unit/ml INJECTION SQ SCH ×3 (10:18→17:52)
[2017-07-18] MEDS: ACETAMINOPHEN 500 MG TABLET PO SCH ×2 (10:24→20:51)
[2017-07-18] MEDS: PredniSONE 20 MG TABLET PO SCH (15:47)
[2017-07-18] MEDS: RIVAROXABAN 10 MG TABLET PO SCH (17:54)
--- NOTE | 2017-07-18 19:35 | Progress Note ---
- Date 07/18/17 Subjective: Mr. York reports persistent dyspnea with wheezing and a rattly cough but minimal sputum production. He has some pleuritic pain with cough but denies palpitations, nausea, or diarrhea. He got some sleep overnight and required use of BiPAP most of the night. His appetite is poor. Nursing reports no fever but concerned about accessory muscle use and tachypnea this morning. Objective Vital signs: Temperature 95.8 F L 07/18/17 15:38 Pulse Rate 82 07/18/17 16:00 Respiratory Rate 18 07/18/17 16:19 Blood Pressure 192/83 H 07/18/17 15:38 Pulse Oximetry 98 07/18/17 16:19 I/O 1570/435 EXAM General-NAD, alert HEENT-conjunctiva clear, conjugate gaze, sclera anicteric Lungs-respirations mildly labored when seen this morning, nonlabored when reassessed off BiPAP this afternoon, breath sounds diminished and slightly coarse throughout-especially with cough Deep inspiration continues to trigger cough Cardiac-regular rhythm, distant heart tones Abd-obese, soft, nontender, bowel sounds present Ext-without edema Neuro-MAEW Psych-calm, cooperative, pleasant - Height/Weight/BMI: Height 1.88 m Weight 123.7 kg Body Mass Index 35.9 Results - Labs CBC & Chem 7: 07/18/17 04:59 07/18/17 04:59 Labs: Magnesium 2.2, phosphorus 3.1, albumin 3.4 Blood sugars 146-166-259 Microbiology Results: Microbiology 07/18/17 10:34 Sputum, Induced Gram Stain - moderate neutrophils, few gram- positive cocci in pair, few yeast 07/18/17 10:34 Sputum, Induced Sputum Culture - Preliminary Culture Initiated - Results Pending - ABG Interpretation ABG results: 07/17/17 11:19 ABG pH 7.360 ABG pCO2 54 H ABG pO2 72 L ABG HCO3 31 H ABG Total CO2 32.2 H ABG O2 Saturation 94.0 L ABG Base Excess 3.9 H Assessment and Plan (1) COPD exacerbation Current visit: Yes Status: Acute (2) RSV bronchitis Current visit: Yes Status: Acute (3) HCAP (healthcare-associated pneumonia) Problem details: Possible left lower lobe infiltrate on chest x-ray Current visit: Yes Status: Acute (4) Diabetes Problem details: Type II; A1c 7.0-04/10/17; chronic insulin therapy, with nephropathy/neuropathy Current visit: No Status: Chronic Assessment and Plan: Impression: Healthcare associated pneumonia-possible Acute respiratory failure-hypoxic/hypercarbic COPD with exacerbation RSV bronchitis-acute Chronic diastolic heart failure-ejection fraction 80% echo 04/28 CKD, stage III Atrial fibrillation, chronic Hypertension Diabetes mellitus type 2, insulin dependent, with nephropathy/neuropathy Obesity-BMI 35.6 on admission Plan: RSV reported on viral swab yesterday, likely trigger for respiratory decompensation with acute COPD exacerbation. Rested briefly with BiPAP this morning after which respiratory pattern began improving. Continue BiPAP at night and when necessary. Vancomycin discontinued based on preliminary Gram stain, continue coverage for strep pending sputum culture report. Prednisone added for COPD. Chest x-ray in a.m. to reevaluate left lower lobe. Scheduled/corrective insulin available for diabetes with hyperglycemia. Resume oral agents in a.m. Delirium fully resolved-situational versus Levaquin. Resume atorvastatin and spironolactone. Hospital Course Summary Disclaimer: The visit summary below is not to be considered part of the above Progress Note. Hospital Course: 07/16/17-07/17/17 Admitted overnight with left lower lobe pneumonia after failing outpatient therapy. Presented with increasing dyspnea and delirium. Antibiotics empirically expanded on presentation to health care coverage with vancomycin, aztreonam, and continuation of Levaquin with doses adjusted for renal failure. Sputum to be induced by respiratory and respiratory viral panel to be obtained in light of low procalcitonin. I am concerned that Levaquin may be contributing to delirium patient has developed prior to hospitalization although respiratory failure may equally explain altered mental status. Continue Levaquin at present. Continue BiPAP for ventilatory assistance as needed and at night. Hypertonic saline added to breathing treatments to help mobilize secretions after discussion with RT. Diuresis initiated overnight, monitor fluid balance cautiously. Resume home dose Bumex. Xarelto continued for atrial fibrillation. 07/18/17 RSV reported on viral swab yesterday, likely trigger for respiratory decompensation with acute COPD exacerbation. Rested briefly with BiPAP this morning after which respiratory pattern began improving. Continue BiPAP at night and when necessary. Vancomycin discontinued based on preliminary Gram stain, continue coverage for strep pending sputum culture report. Prednisone added for COPD. Chest x-ray in a.m. to reevaluate left lower lobe. Scheduled/corrective insulin available for diabetes with hyperglycemia. Resume oral agents in a.m. Delirium fully resolved-situational versus Levaquin. Resume atorvastatin and spironolactone.
[2017-07-18] MEDS ORDERED: HYDROCODONE/APAP 5mg/325mg TABLET PO PRN (19:41)
[2017-07-18] MEDS: AMLODIPINE 2.5 MG TABLET PO SCH (20:52)
[2017-07-18] MEDS ORDERED: ATORVASTATIN 40 MG TABLET PO SCH (21:00)
[2017-07-18] MEDS ORDERED: NON-FORMULARY MEDICATION 1 EACH EACH (Atorvastatin Calcium [Atorvastatin Calcium] 80 MG) PO SCH (21:00)
[2017-07-18] MEDS: INSULIN GLARGINE 100unit/ml INJECTION SQ SCH (22:25)
[2017-07-19] MEDS: ALBUTEROL/IPRATROPIUM 2.5mg-0.5mg/3ml NEB AEROSOL SCH ×4 (03:10→19:49)
[2017-07-19] MEDS: SODIUM CL 3% INHAL.SOLN 15ml NEB AEROSOL SCH ×2 (07:25→19:49)
[2017-07-19] MEDS: AZTREONAM 1 G in NS 100 ML IV SCH (08:54)
[2017-07-19] MEDS: INSULIN ASPART 100unit/ml INJECTION SQ SCH ×3 (08:57→18:43)
[2017-07-19] MEDS: FEXOFENADINE 180 MG TABLET PO SCH (08:58)
[2017-07-19] MEDS: LISINOPRIL 5 MG TABLET PO SCH (08:58)
[2017-07-19] MEDS: BUMETANIDE 1 MG TABLET PO SCH (08:58)
[2017-07-19] MEDS: ACETAMINOPHEN 500 MG TABLET PO SCH ×2 (08:59→21:09)
[2017-07-19] MEDS: FAMOTIDINE 20 MG TABLET PO SCH ×2 (08:59→21:11)
[2017-07-19] MEDS: PredniSONE 20 MG TABLET PO SCH (08:59)
[2017-07-19] MEDS: SPIRONOLACTONE 25 MG TABLET PO SCH (08:59)
[2017-07-19] MEDS: GLIMEPIRIDE 2 MG TABLET PO SCH (09:01)
--- NOTE | 2017-07-19 09:09 | XRay Report ---
Indication: COPD/hypoxia PROCEDURE: XR chest 1V: Encounter: Initial Comparison: July 16, 2017 Findings: Lungs are hypoinflated. Increasing pulmonary vascular congestion. Improved aeration of the left lower lobe. No pneumothorax. Heart size and mediastinal contours are stable. Prior CABG. Impression: Developing mild pulmonary edema. Improved aeration of the left lower lobe. .
--- NOTE | 2017-07-19 11:37 | Progress Note ---
- Date 07/19/17 Subjective: Patient says he's feeling better, breathing easier. On 4 liters oxygen today. Up in chair. Objective Vital signs: Temperature 95.4 F L 07/19/17 08:00 Pulse Rate 64 07/19/17 08:00 Respiratory Rate 22 07/19/17 08:00 Blood Pressure 197/102 H 07/19/17 08:00 Pulse Oximetry 99 07/19/17 08:00 Rhythm: Normal Sinus Rhythm Height/Weight/BMI: Height 6 ft 2 in Weight 124.6 kg Body Mass Index 35.9 - Constitutional Present: no acute distress - Routine Respiratory Exam Present: diminished air movement - Routine Cardiovascular Exam Present: RRR - Routine Abdominal Exam Present: soft, non tender - Routine Extremities Exam Present: no edema Comments: no cyanosis or clubbing - Routine Neurological Exam Present: alert, oriented X3, CN II-XII intact - Routine Psychiatric Exam Present: normal affect Results - Labs CBC & Chem 7: 07/19/17 05:40 07/19/17 05:40 Microbiology Results: Microbiology 07/18/17 10:34 Sputum, Induced Gram Stain - Final 07/18/17 10:34 Sputum, Induced Sputum Culture - Preliminary Culture Initiated - Results Pending Assessment and Plan (1) Diabetes Problem details: Type II; A1c 7.0-04/10/17; chronic insulin therapy, with nephropathy/neuropathy Current visit: No Status: Chronic (2) HCAP (healthcare-associated pneumonia) Problem details: Possible left lower lobe infiltrate on chest x-ray Current visit: Yes Status: Acute (3) COPD exacerbation Current visit: Yes Status: Acute (4) RSV bronchitis Current visit: Yes Status: Acute Assessment and Plan: Impression: Healthcare associated pneumonia-possible Acute respiratory failure-hypoxic/hypercarbic COPD with exacerbation RSV bronchitis-acute Chronic diastolic heart failure-ejection fraction 80% echo 04/28 CKD, stage III Atrial fibrillation, chronic Hypertension - uncontrolled Diabetes mellitus type 2, insulin dependent, with nephropathy/neuropathy Obesity-BMI 35.6 on admission Plan: Sputum with G+C in pairs, on aztreonam, await further culture results to de- escalate today Continue bipap qhs and prn continue prednisone follow cXR Scheduled/corrective insulin available for diabetes with hyperglycemia. Resume oral agents as appropriate Delirium fully resolved-situational versus Levaquin. Resume atorvastatin and spironolactone. Follow BP after med administration this morning - may need medication adjustment Sepsis Assessment - Evaluation Severe Sepsis: none seen Hospital Course Summary Disclaimer: The visit summary below is not to be considered part of the above Progress Note. Hospital Course: 07/16/17-07/17/17 Admitted overnight with left lower lobe pneumonia after failing outpatient therapy. Presented with increasing dyspnea and delirium. Antibiotics empirically expanded on presentation to health care coverage with vancomycin, aztreonam, and continuation of Levaquin with doses adjusted for renal failure. Sputum to be induced by respiratory and respiratory viral panel to be obtained in light of low procalcitonin. I am concerned that Levaquin may be contributing to delirium patient has developed prior to hospitalization although respiratory failure may equally explain altered mental status. Continue Levaquin at present. Continue BiPAP for ventilatory assistance as needed and at night. Hypertonic saline added to breathing treatments to help mobilize secretions after discussion with RT. Diuresis initiated overnight, monitor fluid balance cautiously. Resume home dose Bumex. Xarelto continued for atrial fibrillation. 07/18/17 RSV reported on viral swab yesterday, likely trigger for respiratory decompensation with acute COPD exacerbation. Rested briefly with BiPAP this morning after which respiratory pattern began improving. Continue BiPAP at night and when necessary. Vancomycin discontinued based on preliminary Gram stain, continue coverage for strep pending sputum culture report. Prednisone added for COPD. Chest x-ray in a.m. to reevaluate left lower lobe. Scheduled/corrective insulin available for diabetes with hyperglycemia. Resume oral agents in a.m. Delirium fully resolved-situational versus Levaquin. Resume atorvastatin and spironolactone. 07/19/17 11:42 Sputum with G+C in pairs, on aztreonam, await further culture results to de- escalate today Continue bipap qhs and prn continue prednisone follow cXR Scheduled/corrective insulin available for diabetes with hyperglycemia. Resume oral agents as appropriate Delirium fully resolved-situational versus Levaquin. Resume atorvastatin and spironolactone. Follow BP after med administration this morning - may need medication adjustment
[2017-07-19] MEDS ORDERED: VANCOMYCIN - PHARMACY CONSULT MC ONE (17:04)
[2017-07-19] MEDS ORDERED: LEVOFLOXACIN PB 750 MG/150 ML BAG IV SCH (17:15)
--- NOTE | 2017-07-19 17:37 | Pharmacy Consult-Antibiotics ---
Pharmacy Consult-Vancomycin - Laboratory Information WBC 6.2 T/MM3 (4.5-11.0) 07/19/17 05:40 BUN 38.0 MG/DL (9-20) H 07/19/17 05:40 Creatinine 1.1 MG/DL (0.8-1.5) D 07/19/17 05:40 Procalcitonin 0.09 NG/ML 07/16/17 17:15 - Consult Information Vancomycin consult noted by Dr Curtis for Mr York. Will restart previous dose of vancomycin 1 gram IV q12h. Thank you.
[2017-07-19] MEDS: RIVAROXABAN 10 MG TABLET PO SCH (17:42)
[2017-07-19] MEDS: AMLODIPINE 2.5 MG TABLET PO SCH (21:10)
[2017-07-19] MEDS: INSULIN GLARGINE 100unit/ml INJECTION SQ SCH (21:11)
[2017-07-20] MEDS: ALBUTEROL/IPRATROPIUM 2.5mg-0.5mg/3ml NEB AEROSOL SCH ×2 (02:39→08:04)
[2017-07-20 07:48] VITALS: BP 156/73; TEMP 96.8
[2017-07-20] MEDS: SODIUM CL 3% INHAL.SOLN 15ml NEB AEROSOL SCH (08:04)
[2017-07-20 08:23] VITALS: RESP 16
--- NOTE | 2017-07-20 08:25 | XRay Report ---
Indication: edema PROCEDURE: XR chest 1V: Encounter: Initial Comparison: July 19, 2017 Findings: Pulmonary vascular congestion has improved. No new airspace disease. Lungs are hypoinflated with bronchovascular crowding. No pneumothorax. Heart size and mediastinal contours are unchanged. Impression: Hypoinflation with improving edema. .
[2017-07-20] MEDS: BUMETANIDE 1 MG TABLET PO SCH (08:50)
[2017-07-20] MEDS: FEXOFENADINE 180 MG TABLET PO SCH (08:50)
[2017-07-20] MEDS: ACETAMINOPHEN 500 MG TABLET PO SCH (08:50)
[2017-07-20] MEDS: LISINOPRIL 5 MG TABLET PO SCH (08:51)
[2017-07-20] MEDS: PredniSONE 20 MG TABLET PO SCH (08:51)
[2017-07-20] MEDS: SPIRONOLACTONE 25 MG TABLET PO SCH (08:51)
[2017-07-20] MEDS: GLIMEPIRIDE 2 MG TABLET PO SCH (08:52)
[2017-07-20] MEDS: SALINE FLUSH 10ml SYRINGE IVF PRN (08:52)
[2017-07-20] MEDS: INSULIN ASPART 100unit/ml INJECTION SQ SCH ×2 (08:52→12:57)
[2017-07-20] MEDS: FAMOTIDINE 20 MG TABLET PO SCH (08:53)
--- NOTE | 2017-07-20 10:17 | Discharge Summary ---
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 - Discharge Diagnosis (1) Diabetes Status: Chronic (2) HCAP (healthcare-associated pneumonia) Status: Acute (3) COPD exacerbation Status: Acute (4) RSV bronchitis Status: Acute Healthcare associated pneumonia-possible Acute respiratory failure-hypoxic/hypercarbic COPD with exacerbation RSV bronchitis-acute Chronic diastolic heart failure-ejection fraction 80% echo 04/28 CKD, stage III Atrial fibrillation, chronic Hypertension - uncontrolled Diabetes mellitus type 2, insulin dependent, with nephropathy/neuropathy Obesity-BMI 35.6 on admission - Laboratory Labs: 07/20/17 04:28 07/20/17 04:28 - Microbiology Microbiology 07/18/17 10:34 Sputum, Induced Gram Stain - Final 07/18/17 10:34 Sputum, Induced Sputum Culture - Final Staphylococcus aureus, MRSA - Radiology Radiology: CXR 07/20/17 Impression: Hypoinflation with improving edema. History of Present Illness HPI: Mr. York is an 82yo man who was evaluated by Damaris Redd APRN on 07/13 for evaluation of his lungs at which time chest x-ray demonstrated left retrocardiac infiltrate and he was started on just 250mg PO levaquin/day. Minimally productive cough was reported at that time. Subsequently the patient has been weak and fallen without syncope. He was transferred to the emergency room today with reports of increasing dyspnea, delirium, and fever from the [facility]. Temperature on arrival in the ER was 100.3 and the patient was to And low-grade tachycardia. He was in respiratory distress on arrival on the emergency room despite transfer on CPAP. The emergency room received history that they've been unable to keep supplemental oxygen on the patient. little history could be obtained directly from the patient in the emergency room or the time of my assessment. He denied cough, sputum, chest pain, fever, or chills. Has had nausea and anorexia, but no diarrhea. Chest x-ray again demonstrated left lower lobe infiltrate with compensated hypercarbia on blood gas. Patient was hospitalized for further management having failed outpatient therapy. Objective Vital signs: Temperature 96.8 F 07/20/17 07:47 Pulse Rate 66 07/20/17 07:47 Respiratory Rate 16 07/20/17 08:09 Blood Pressure 156/73 H 07/20/17 07:47 Pulse Oximetry 99 07/20/17 08:09 Rhythm: Normal Sinus Rhythm Height/Weight/BMI: Height 6 ft 2 in Weight 124.6 kg Body Mass Index 35.9 - Constitutional Present: no acute distress - Routine HEENT Exam Head: Present: normocephalic, atraumatic Eye: Present: EOMI, PERRL ENT: Present: mucous membranes moist - Routine Respiratory Exam Comments: diminished in bilateral bases, improved wheezing and air flow - Routine Cardiovascular Exam Present: RRR - Routine Abdominal Exam Present: soft, non distended, non tender - Routine Extremities Exam Present: no edema - Routine Skin Exam Present: intact, dry, warm - Routine Neurological Exam Present: alert, oriented X3, CN II-XII intact - Routine Psychiatric Exam Present: normal affect Hospital Course This is a general summary of the patient's hospital course. For more details refer to the complete medical record. Hospital course: 07/16/17-07/17/17 Admitted overnight with left lower lobe pneumonia after failing outpatient therapy. Presented with increasing dyspnea and delirium. Antibiotics empirically expanded on presentation to health care coverage with vancomycin, aztreonam, and continuation of Levaquin with doses adjusted for renal failure. Sputum to be induced by respiratory and respiratory viral panel to be obtained in light of low procalcitonin. I am concerned that Levaquin may be contributing to delirium patient has developed prior to hospitalization although respiratory failure may equally explain altered mental status. Continue Levaquin at present. Continue BiPAP for ventilatory assistance as needed and at night. Hypertonic saline added to breathing treatments to help mobilize secretions after discussion with RT. Diuresis initiated overnight, monitor fluid balance cautiously. Resume home dose Bumex. Xarelto continued for atrial fibrillation. 07/18/17 RSV reported on viral swab yesterday, likely trigger for respiratory decompensation with acute COPD exacerbation. Rested briefly with BiPAP this morning after which respiratory pattern began improving. Continue BiPAP at night and when necessary. Vancomycin discontinued based on preliminary Gram stain, continue coverage for strep pending sputum culture report. Prednisone added for COPD. Chest x-ray in a.m. to reevaluate left lower lobe. Scheduled/corrective insulin available for diabetes with hyperglycemia. Resume oral agents in a.m. Delirium fully resolved-situational versus Levaquin. Resume atorvastatin and spironolactone. 07/19/17 11:42 Sputum with G+C in pairs, on aztreonam, await further culture results to de- escalate today Continue bipap qhs and prn continue prednisone follow cXR Scheduled/corrective insulin available for diabetes with hyperglycemia. Resume oral agents as appropriate Delirium fully resolved-situational versus Levaquin. Resume atorvastatin and spironolactone. Follow BP after med administration this morning - may need medication adjustment 07/20/17 Sputum resulted with staph aureus that is sensitive to doxy - I had restarted vancomycin yesterday in addition to aztreonam as a result of the staph, will de- escalate to doxy today. Finish steroid taper at [place]. Patient doing well on 2 liters, can likely be weaned down more. CXR improved. BP has been stable after isolated high reading yesterday. Discharge Plan - Discharge Disposition Disposition: [facility] To [facility] [place] ([facility]NF) *Condition: Improved Reason For Visit (Visit label in EMR): HCAP - Discharge Medications *Discharge Medications: New Bumetanide Tab [Bumex Tab] 2 mg PO DAILY tab Doxycycline [Vibramycin] 100 mg PO BIDWM 7 Days #14 tab PredniSONE [Deltasone] 20 mg PO WB #9 tab Continue Tamsulosin HCl [Flomax] 0.4 mg PO HS #0 Famotidine 20 mg PO BID #0 Nitroglycerin 0.4 mg SL Q5MIN3 PRN #0 PRN Reason: CHEST PAIN Sertraline HCl 25 mg PO DAILY #0 Ipratropium/Albuterol Sulfate [Iprat-Albut 0.5-3(2.5) mg/3 ml] 1 vial AEROSOL TID #0 Lisinopril 5 mg PO DAILY #0 Sodium Chloride Nasal Gel [[place] Nasal Gel] 1 applicatio EA NOSTRIL QID #0 Insulin Glargine,Hum.rec.anlog [Lantus] 20 unit SQ HS #0 vial Clotrimazole [Lotrimin AF] 1 applicatio TOP BID #0 Loperamide [Imodium] 1 mg PO Q6H PRN #0 cap PRN Reason: DIARRHEA Hydrocortisone 1% Cream [Cortizone-10 Cream] 1 applicatio TOP BID Vitamins A and D [Vitamin A & D] 1 applicatio TP DAILY Rivaroxaban [Xarelto] 10 mg PO WS Fluticasone Nasal Adak [Flonase] 1 spray EA NOSTRIL BID Omeprazole Magnesium [Prilosec Otc] 20 mg PO BID Fexofenadine [Josefina] 180 mg PO DAILY Guaifenesin/Dextromethorphan [Robitussin Cough-Chest Dm Liq] 10 ml PO Q4H PRN PRN Reason: Prn Orders Albuterol/Ipratropium [Duoneb] 3 ml AEROSOL Q2H PRN PRN Reason: Shortness Of Air Hydrocodone/APAP 5/325 [[place] 5/325] 1 - 2 tab PO Q4H PRN PRN Reason: Pain Insulin Aspart [NovoLOG] 10 unit SQ TIDWM Fluticasone/Salmeterol 500/50 [Advair 500-50Diskus] 1 puff INH BID Docusate Sodium 200 mg PO DAILY #0 Atorvastatin Calcium 80 mg PO HS #0 Amlodipine Besylate 2.5 mg PO HS #0 Acetaminophen [Acetaminophen Extra Strength] 1,000 mg PO BID #0 Spironolactone [Aldactone] 25 mg PO DAILY #0 Glimepiride 2 mg PO WB #0 tab Magnesium Oxide 400 mg PO BID #0 LINAGLIPTIN 5mg [Tradjenta] 5 mg PO DAILY #0 Nystatin 1 applicatio TP BID Loperamide HCl [Imodium A-D] 2 mg PO HS Insulin Aspart [NovoLOG] 5 unit SQ PRN PRN PRN Reason: Hyperglycemia Discontinued Bumetanide 2 mg PO DAILY #0 Levofloxacin [Levaquin] 250 mg PO DAILY - Discharge Packet/Instructions *Diet: carbohydrate controlled *Activity: up with assist *Pain Management/Treatment: norco and tylenol *Wound Care: na *Expected Signs/Symptoms: n/a *Notify Physician if: Difficulty breathing or fever *During Business Hours Contact: PCP *After Business Hours Contact: ER *Pending Lab/Results: No Pending Lab - Referrals/Follow Up *Referrals/Follow Up: Alfa Leigh MD [Family Provider] - 1 Week - Patient Handouts Patient Handouts: [facility] Congestive Heart Failure
[2017-07-20 10:43] VITALS: PULSE 56
--- NOTE | 2017-07-20 11:49 | Extended Care Facility Orders ---
Admission Orders Admit to:: [facility] Allergies/Adverse Reactions: Allergies iodine Allergy (Severe, Verified 07/16/17 17:12) SWELLING PT. STATES, "AFTER MY LAST HEART CATH IN [place] I HAD SWELLING IN MY FACE". peanut Allergy (Severe, Verified 07/16/17 17:12) SHORTNESS OF BREATH Penicillins Allergy (Intermediate, Verified 07/16/17 17:12) SWOLLEN THROAT doxazosin Allergy (Unknown, Verified 07/16/17 17:12) SOB,CHEST PRESSURE metformin Allergy (Unknown, Verified 07/16/17 17:12) ELEVATED CREATININE pioglitazone Allergy (Unknown, Verified 07/16/17 17:12) FLUID RETENTION,CHF Admitting Diagnosis: HCAP Admitting Physician: Ela Curtis DO Attending Physician: Ela Curtis DO Code Status: Full Code Anticiapted Length of Stay: greater than 30 days Rehab Potential: fair Rehab Prognosis: fair May use Facility Protocol or Standing Orders: Yes May have flu vaccine: Yes Evaluations/Treatment: PT, OT, as needed Halfway Certification: I certify that SNF services are required to be given on an Inpatient basis because of the patients need for detention care on a continuing basis for the condition(s) for which he/she received inpatient hospital services prior to his/her transfer to the SNF. SNF inpatient care is necessary for the following reasons - Additional Information In Event of Arrest: Start CPR,call 911,send patient to the ER Referrals: Alfa Leigh MD [Family Provider] - 1 Week
[2017-07-20 13:09] VITALS: O2SAT 94
== END 2017-07-20 13:10 | DRG 194 ==
LOC: ED 16:58 → SUATTDRO 19:34 → MED 19:34
PROVIDERS: ADMIT Hospitalist; ATTEND Internal Medicine